=== PATIENT | female | born 1945 | race Caucasian/White ===

== ENCOUNTER → 2016-06-15 | Outpatient (CLI) | payer BC, MEDICARE ==
[~2016-06-15] MED LIST: ALLEGRA60 MG PO; PREVACID 30MG C30 M1 PO
[2016-06-15 08:33] LABS: HEMOGLOBIN 12.7 g/dL (12.2-16.2); LYMPH # 62.9 K/mm3 (0.7-4.5); LYMPH % 91.1 % (10-50.0)
[2016-06-15 10:07] LABS: BUN 17 mg/dL (7-18)
[2016-06-15 10:22] LABS: GFR (ESTIMATED) 62 ML/MIN (59-)
[2016-06-15 15:35] LABS: NEUTROPHILS 2 % (42-76)
== END ==
LOC: LAB 08:00
PROVIDERS: Internal Medicine
DX: C91.10 Chronic lymphocytic leukemia of B-cell type not having achieved remission (principal)

== ENCOUNTER → 2017-02-07 | Outpatient (CLI) | payer BC, MEDICARE ==
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
== END ==
LOC: RAD 08:19
DX: Q43.8 Other specified congenital malformations of intestine (principal); K58.0 Irritable bowel syndrome with diarrhea

== ENCOUNTER → 2017-04-01 | Outpatient (CLI) | payer BC, MEDICARE ==
[2017-04-01 13:51] LABS: HEMOGLOBIN 13.2 g/dL (12.2-16.2); LYMPH # 54.8 K/mm3 (0.7-4.5); LYMPH % 90.7 % (10-50.0)
[2017-04-01 14:21] LABS: BUN 20 mg/dL (7-18); GFR (ESTIMATED) 62 ML/MIN (59-)
[2017-04-01 17:22] LABS: NEUTROPHILS 11 % (42-76)
== END ==
LOC: CARL-LAB 07:31
PROVIDERS: Internal Medicine
DX: C91.10 Chronic lymphocytic leukemia of B-cell type not having achieved remission (principal)